=== PATIENT | female | born 1970 | race Caucasian/White ===

== ENCOUNTER 2018-09-22 08:25 | Day surgery (SDC) | payer MEDICAID ==
[~2018-09-22] VITALS: Ht 157.5 cm; Wt 90.7 kg
[2018-09-22] MEDS ORDERED: METF-816 MT (11:20)
[2018-09-22] MEDS ORDERED: FLUT12AE5 INH (11:20)
[2018-09-22] MEDS ORDERED: HYDR25TA MT (11:20)
[2018-09-22] MEDS ORDERED: ATOR40TA70 MT (11:20)
[2018-09-22] MEDS ORDERED: GLIP5TAB12 MT (11:20)
[2018-09-22] MEDS ORDERED: METO-539 MT (11:20)
[2018-09-22 12:20] LABS: HEMATOCRIT 44.8 % (36.0-48.0); HEMOGLOBIN 15.2 g/dL (12.0-16.0); MEAN CORPUSCULAR HEMOGLOBIN 29.6 pg (28.0-32.0); PLATELET 270 x1000/uL (130-400); RED BLOOD CELL COUNT 5.15 mill/uL (4.2-5.4); RED CELL DISTRIBUTION WIDTH 12.9 % (11.6-14.6)
[2018-09-22 12:22] LABS: CHLORIDE 105 mEq/L (98-107)
[2018-09-22 12:24] LABS: INR 1.1; PARTIAL THROMBOPLASTIN TIME 30.5 sec (23.4-31.0); PROTHROMBIN TIME 11.4 sec (9.1-11.1)
[2018-09-22] MEDS ORDERED: IOHEXOL-300 100 ML BOTTLE ONE (13:52)
[2018-09-22] MEDS ORDERED: LIDOCAINE HCL 1% 20ML VIAL (Pyxis) INJ ONE (13:52)
[2018-09-22] MEDS ORDERED: HEPARIN SODIUM 1,000 UNIT/1ML VIAL IV ONE ×2 (13:58→14:06)
[2018-09-22] MEDS ORDERED: MIDAZOLAM HCL 2 MG/2 ML VIAL ONE (14:20)
[2018-09-22] MEDS ORDERED: FENTANYL CITRATE/PF 50MCG/ML 2ML VIAL ONE (14:20)
[2018-09-22] MEDS ORDERED: NITROGLYCERIN 50MCG/ML 10ML VIAL (CATH LAB) IV ONE (15:38)
[2018-09-22] MEDS ORDERED: NICARDIPINE 100MCG/ML 10ML VIAL (CATH LAB) IV ONE (15:38)
[2018-09-22] MEDS ORDERED: ACETAMINOPHEN 325MG TABLET PO PRN (20:30)
[2018-09-22] MEDS ORDERED: ONDANSETRON HCL 4MG/2ML INJ IV PRN (20:30)
[2018-09-22] MEDS ORDERED: MORPHINE SULFATE 4 MG/ML CPJ (NOT FOR IM USE) IV PRN (20:30)
== END 2018-09-22 17:30 | disposition home or self-care (01) ==
LOC: CCL 08:25
PROVIDERS: ATTEND Internal Medicine Cardiovascular Disease
DX: R07.9 Chest pain, unspecified (principal); R94.39 Abnormal result of other cardiovascular function study
CPT/HCPCS: 36415; 80048; 85027; 85610; 85730; 93005; 93458; C1769; C1887; J1644; J2250; J3010; J3490; Q9967; C1893